=== PATIENT | male | born 2005 | race Two or more races ===

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

== ENCOUNTER → 2024-01-07 | Outpatient (CLI) | payer BC ==
[~2024-01-07] MED LIST changes: +ISOVUE-300 61% 100ML VIAL As Ordered ONE; +LIDOCAINE 1% MDV 20ML VIAL As Ordered ONE; +PROHANCE 279.3MG/ML 5ML VIAL As Ordered ONE
== END ==
LOC: M RAD 06:31
PROVIDERS: ATTEND Orthopaedic Surgery
DX: M16.12 Unilateral primary osteoarthritis, left hip (principal); M25.752 Osteophyte, left hip; Z47.89 Encounter for other orthopedic aftercare
CPT/HCPCS: 27093; 73723; 77002; A9576; Q9967